=== PATIENT | male | born 1945 | race Caucasian/White ===

== ENCOUNTER → 2018-09-02 | Outpatient (CLI) | payer MEDICARE, OTHER ==
[~2018-09-02] MED LIST: ARIP30TA10 PO; ASPI-1471 PO; AZIT-1 PO; AZIT-17 PO; BIS10S PR; CHOL10005 PO; CHOL200025 PO; DIP25 PO; DIPH0.5D12 IM; DOC100 PO; ESCI20TA38 PO; FLUT16SP19 NS; HYDR1TAB PO; MERC50TA PO; MIR15 PO; MIR45PT PO; MIRT-20 PO; MIRT-25 PO; PAN40 PO; PNEI IM; PNEU0.5D3 IM; ROSU10TA5 PO; SULF-198 PO; TES5T TD; TEST2.5G6 TOP; VENL75CA58 PO; VENL75TA12 PO; WARF4TAB47 PO; ZOST19404 SQ; [UNRECOGNIZED DRUG - CODE] TP
== END ==
LOC: LAB 11:13
PROVIDERS: ATTEND Nurse Practitioner Family
DX: E87.5 Hyperkalemia (principal)
CPT/HCPCS: 84132

== ENCOUNTER → 2019-04-22 | Outpatient (CLI) | payer MEDICARE, OTHER ==
[~2019-04-22] MED LIST changes: -DIPH0.5D12 IM; +DIPH0.5S2 IM
== END ==
LOC: LAB 15:20
PROVIDERS: ATTEND Nurse Practitioner Family
DX: E87.5 Hyperkalemia (principal); R79.89 Other specified abnormal findings of blood chemistry
CPT/HCPCS: 36415; 82310; 82374; 82435; 82565; 82947; 84132; 84295; 84520